=== PATIENT | female | born 1990 | race Caucasian/White ===

== ENCOUNTER 2017-03-14 14:34 | Inpatient (IN) | payer BC ==
[2017-03-14] MEDS ORDERED: PERMETHRIN 5% TOPICAL CREAM 60 GM TUBE TP ONE (15:25)
[2017-03-14 16:14] VITALS: BMI 25.6
--- NOTE | 2017-03-14 16:14 | HP ---
COWS - Scale Resting Pulse: 2= [place] 101-120 Sweatin=Flushed/Facial Moisture Restless Observation: 3= Extraneous Movement Pupil Size: 2= Moderately Dilated Bone or Joint Aches: 2= Severe Diffuse Aches Runny Nose/ Eye Tearin= Runny Nose/Eyes GI Upset > 30mins: 3= Vomiting/Diarrhea Tremor Observation: 2= Slight Tremor Visible Yawning Observation: 2= >3x During Session Anxiety or Irritability: 2=Irritable/Anxious Goose Flesh Skin: 0=Smooth Skin COWS Score: 22 Admission ROS S - HPI Chief Complaint: I NEED HELP TO STOP USING HEROIN,XANAX,CRYSTAL METH Allergies/Adverse Reactions: Allergies Allergy/AdvReac Type Severity Reaction Status Date / Time No Known Allergies Allergy Verified 03/14/17 15:19 History of Present Illness: THIS 26 YEARS OLD FEMALE WITH HEROIN,XANAX,CRYSTAL METH,DRINK TODAY,SEEKING DETOX,WITHDRAWAL SYMPTOM,LAST TREATMENT CATIE FROM 02/11/17 TO 02/16/17 ANXIETY,DEPRESSION,INSOMNIA NO SIGNIFICANT PERIOD OF SOBRIETY - Ebola screening Have you traveled outside of the country in the last 21 days: No Have you had contact with anyone from an Ebola affected area: No Do you have a fever: No - Review of Systems Constitutional: Chills, Diaphoresis, Loss of Appetite, Malaise, Night Sweats, Changes in sleep, Weakness EENT: reports: Tearing, Nose Congestion Respiratory: reports: No Symptoms reported Cardiac: reports: No Symptoms Reported GI: reports: Diarrhea, Nausea, Poor Fluid Intake, Vomiting Musculoskeletal: reports: Back Pain, Joint Pain, Muscle Pain Integumentary: reports: Dryness Neuro: reports: Headache, Tremors Endocrine: reports: No Symptoms Reported Hematology: reports: No Symptoms Reported Psychiatric: reports: Anxious, Depressed (INSOMNIA) Patient History - Patient Medical History Hx Anemia: Yes (NO MEDICATION) Hx Asthma: No Hx Chronic Obstructive Pulmonary Disease (COPD): No Hx Cancer: No Hx Cardiac Disorders: No Hx Congestive Heart Failure: No Hx Hypertension: No Hx Hypercholesterolemia: No Hx Pacemaker: No HX Cerebrovascular Accident: No Hx Seizures: No Hx Dementia: No Hx Diabetes: No Hx Gastrointestinal Disorders: No Hx Liver Disease: No Hx Genitourinary Disorders: No Hx Sexually Transmitted Disorders: No Hx Renal Disease (ESRD): No Hx Thyroid Disease: No Hx Human Immunodeficiency Virus (HIV): No (LAST 2016 NEGATIVE) Hx Hepatitis C: No Hx Depression: Yes (ANXIETY) Hx Suicide Attempt: No Hx Bipolar Disorder: No Hx Schizophrenia: No Other Medical History: NO SUICIDAL,NO HOMICIDAL - Patient Surgical History Hx Orthopedic Surgery: Yes (LEFT ANKLE IN 2013) Other Surgical History: FX OF MANDIBLE IN 2011 - PPD History Previous Implant?: Yes Documented Results: Negative w/o proof Implanted On Prior [facility] Admission?: No PPD to be Administered?: Yes - Reproductive History Patient is a Female of Child Bearing Age (11 -55 yrs old): Yes Last Menstrual Period: 02/26/17 Patient : No - Smoking Cessation Smoking history: Current every day smoker Have you smoked in the past 12 months: Yes Aproximately how many cigarettes per day: 20 Hx Chewing Tobacco Use: No Initiated information on smoking cessation: Yes 'Breaking Loose' booklet given: 03/14/17 - Substance & Tx. History Hx Alcohol Use: No Hx Substance Use: Yes Substance Use Type: Cocaine, Heroin, Tranquilizers Hx Substance Use Treatment: Yes (CATIE 02/11/17 TO 02/16/17) - Substances Abused Heroin Route: Injection Frequency: Daily Amount used: 20 BAGS Age of first use: 16 Date of Last Use: 03/14/17 Alprazolam (Xanax) Route: Oral Frequency: 3-6 times per week Amount used: 4MGS Age of first use: 16 Date of Last Use: 03/13/17 Cocaine Route: Injection Frequency: 1-3 times last 30 days Amount used: 100$ Age of first use: 15 Date of Last Use: 03/13/17 Alcohol Route: Oral Frequency: No use in 30 days Amount used: 4 GLASSES OF WINE Age of first use: 15 Date of Last Use: 03/13/17 Family Disease History - Family Disease History Family History: Denies Family Disease History: Other: Father (ALCOHOL) Admission Physical Exam [facility] - Vital Signs Vital Signs: Vital Signs Temperature 97.1 F L 03/14/17 16:12 Pulse Rate 107 H 03/14/17 16:12 Respiratory Rate 18 03/14/17 16:12 Blood Pressure 108/72 03/14/17 16:12 O2 Sat by Pulse Oximetry (%) - Physical General Appearance: Yes: Moderate Distress, Alcohol on Breath, Tremorous, Irritable, Sweating HEENTM: Yes: Normal ENT Inspection, ANAID, Pharynx Normal Respiratory: Yes: Lungs Clear, Normal Breath Sounds, No Respiratory Distress Neck: Yes: Within Normal Limits, Supple, Trachea in good position Breast: Yes: Within Normal Limits Cardiology: Yes: Within Normal Limits, Regular Rhythm, S1, S2 Abdominal: Yes: Normal Bowel Sounds, Non Tender, Soft, Organomegaly Genitourinary: Yes: Within Normal Limits Back: Yes: Muscle Spasm Musculoskeletal: Yes: full range of Motion, Back pain, Joint Stiffness, Muscle Pain Extremities: Yes: Tremors 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
[2017-03-14] MEDS ORDERED: P-EPHED 60MG/TRIPROLIDI 2.5MG TABLET PO PRN (16:32)
[2017-03-14] MEDS ORDERED: LOPERAMIDE HCL 2 MG CAPSULE PO PRN (16:32)
[2017-03-14] MEDS ORDERED: guaiFENesin/D-METHORPHAN HB 10 ML UNIT-DOSE CUPS PO PRN (16:32)
[2017-03-14] MEDS ORDERED: MAGNESIUM CITRATE 300 ML BOTTLE PO PRN (16:32)
[2017-03-14] MEDS ORDERED: METHADONE HCL 10 MG TABLET (FOR DETOX USE ONLY) PO ONE ×2 (16:32→23:00)
[2017-03-14] MEDS ORDERED: MAG HYDROX/AL HYDROX/SIMETH 30 ML UNIT-DOSE CUP PO PRN (16:32)
[2017-03-14] MEDS ORDERED: MENTHOL/PHENOL 1 EACH UD MM PRN (16:32)
[2017-03-14] MEDS ORDERED: MAGNESIUM HYDROX 2400MG/30ML ORAL SUSPENSION 30 ML CUP PO PRN (16:32)
--- NOTE | 2017-03-14 16:42 | HP ---
COWS - Scale Resting Pulse: 2= [place] 101-120 Sweatin=Flushed/Facial Moisture Restless Observation: 3= Extraneous Movement Pupil Size: 2= Moderately Dilated Bone or Joint Aches: 2= Severe Diffuse Aches Runny Nose/ Eye Tearin= Runny Nose/Eyes GI Upset > 30mins: 3= Vomiting/Diarrhea Tremor Observation: 2= Slight Tremor Visible Yawning Observation: 2= >3x During Session Anxiety or Irritability: 2=Irritable/Anxious Goose Flesh Skin: 0=Smooth Skin COWS Score: 22 Admission ROS S - HPI Chief Complaint: I NEED HELP TO STOP USING HEROIN ,XANAX,COCAINE Allergies/Adverse Reactions: Allergies Allergy/AdvReac Type Severity Reaction Status Date / Time No Known Allergies Allergy Verified 03/14/17 15:19 History of Present Illness: THIS 26 YEARS OLD FEMALE WITH HEROIN,COCAINE,XANAX DEPENDENCE,SEEKING DETOX,LAST DETOX CATIE FRO TO 02/16/17 FX OF MANDIBLE AND LEFT ANKLE NO SIGNIFICANT PERIOD OF SOBRIETY - Ebola screening Have you traveled outside of the country in the last 21 days: No Have you had contact with anyone from an Ebola affected area: No Have you been sick,other than usual withdrawal symptoms: No Do you have a fever: No - Review of Systems Constitutional: Chills, Loss of Appetite, Malaise, Night Sweats, Changes in sleep, Weakness EENT: reports: Tearing, Nose Congestion Respiratory: reports: No Symptoms reported, Shortness of Breath Cardiac: reports: No Symptoms Reported GI: reports: Diarrhea, Nausea, Vomiting, Abdominal cramping : reports: No Symptoms Reported Musculoskeletal: reports: Back Pain, Joint Pain, Muscle Pain, Joint Stiffness Integumentary: reports: Dryness Neuro: reports: Headache, Tremors Endocrine: reports: No Symptoms Reported Hematology: reports: Other (ANEMIA) Psychiatric: reports: Anxious, Depressed, other (INSOMNIA) Patient History - Patient Medical History Hx Anemia: Yes (NO MEDICATION) Hx Asthma: No Hx Chronic Obstructive Pulmonary Disease (COPD): No Hx Cancer: No Hx Cardiac Disorders: No Hx Congestive Heart Failure: No Hx Hypertension: No Hx Hypercholesterolemia: No Hx Pacemaker: No HX Cerebrovascular Accident: No Hx Seizures: No Hx Dementia: No Hx Diabetes: No Hx Gastrointestinal Disorders: No Hx Liver Disease: No Hx Genitourinary Disorders: No Hx Sexually Transmitted Disorders: No Hx Renal Disease (ESRD): No Hx Thyroid Disease: No Hx Human Immunodeficiency Virus (HIV): No (LAST 2017 NEGATIVE) Hx Hepatitis C: No Hx Depression: Yes (ANXIETY) Hx Suicide Attempt: No Hx Bipolar Disorder: No Hx Schizophrenia: No Other Medical History: NO SUICIDAL,NO HOMICIDAL - Patient Surgical History Hx Orthopedic Surgery: Yes (LEFT ANKLE IN 2013) Other Surgical History: FX OF MANDIBLE IN 2011 - PPD History Previous Implant?: Yes Documented Results: Negative w/o proof Implanted On Prior [facility] Admission?: No - Reproductive History Last Menstrual Period: 02/26/17 Patient : No - Smoking Cessation Smoking history: Current every day smoker Have you smoked in the past 12 months: Yes Aproximately how many cigarettes per day: 20 Hx Chewing Tobacco Use: No Initiated information on smoking cessation: Yes 'Breaking Loose' booklet given: 03/14/17 - Substances Abused Heroin Route: Injection Frequency: Daily Amount used: 20 BAGS Age of first use: 16 Date of Last Use: 03/14/17 Alprazolam (Xanax) Route: Oral Frequency: 3-6 times per week Amount used: 4MGS Age of first use: 16 Date of Last Use: 03/13/17 Cocaine Route: Injection Frequency: 1-3 times last 30 days Amount used: 100$ Age of first use: 15 Date of Last Use: 03/13/17 Alcohol Route: Oral Frequency: No use in 30 days Amount used: 4 GLASSES OF WINE Age of first use: 15 Date of Last Use: 03/13/17 Family Disease History - Family Disease History Family Disease History: Other: Father (ALCOHOL) Admission Physical Exam [facility] - Vital Signs Vital Signs: Vital Signs - 24 hr 03/14/17 16:12 Temperature 97.1 F L Pulse Rate 107 H Respiratory 18 Rate Blood Pressure 108/72 - Physical General Appearance: Yes: Tremorous, Irritable, Sweating, Anxious HEENTM: Yes: ANAID, Nasal Congestion Respiratory: Yes: Lungs Clear, Normal Breath Sounds, No Respiratory Distress Neck: Yes: Within Normal Limits, Supple, Trachea in good position Breast: Yes: Breast Exam Deferred Cardiology: Yes: Within Normal Limits, Regular Rhythm, Regular Rate, S1, S2 Abdominal: Yes: Within Normal Limits, Normal Bowel Sounds, Non Tender, Flat, Soft Genitourinary: Yes: Within Normal Limits Back: Yes: Within Normal Limits, Normal Inspection, Muscle Spasm Musculoskeletal: Yes: Back pain, Joint Stiffness, Muscle Pain Extremities: Yes: Within Normal Limits, Normal Range of Motion, Tremors 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, Fully Oriented, Alert, Motor Strength 5/5 Integumentary: Yes: Dry Lymphatic: Yes: Within Normal Limits - Diagnostic (1) Opioid dependence with withdrawal Current Visit: Yes Status: Acute (2) Uncomplicated sedative, hypnotic or anxiolytic withdrawal Current Visit: Yes Status: Acute (3) Insomnia secondary to depression with anxiety Current Visit: Yes Status: Acute (4) Nicotine dependence Current Visit: Yes Status: Acute (5) Exposure to potential infection Current Visit: Yes Status: Acute (6) Restless leg syndrome Current Visit: Yes Status: Acute (7) History of anemia Current Visit: Yes Status: Acute (8) Vitamin D deficiency Current Visit: Yes Status: Acute Cleared for Admission [facility] - Detox or Rehab [facility] Level of Care: Medically Managed Detox Regimen/Protocol: Methadone/Librium [facility] Breath Alcohol Content Breath Alcohol Content: 0 Urine Pregancy Test - Result Urine Test Results: Negative- NO Line Present Urine Drug Screen - Results Drug Screen Negative: No Urine Drug Screen Results: LARISA-Cocaine, OPI-Opiates, BZO-Benzodiazepines, OXY- Oxycodone
[2017-03-14] MEDS ORDERED: chlordiazePOXIDE HCL 25 MG CAPSULE PO ONE (17:15)
[2017-03-14] MEDS: NICOTINE POLACRILEX 2 MG GUM BC PRN (18:20)
[2017-03-14] MEDS: NICOTINE 21 MG/24 HOURS TOPICAL PATCH TD SCH (18:21)
[2017-03-14 22:08] LABS: URINE APPEARANCE TURBID; URINE BILIRUBIN NEGATIVE (NEGATIVE); URINE BLOOD NEGATIVE (NEGATIVE); URINE COLOR YELLOW; URINE GLUCOSE (UA) NEGATIVE (NEGATIVE); URINE KETONE NEGATIVE (NEGATIVE); URINE LEUK ESTERASE TRACE (NEGATIVE); URINE NITRITE NEGATIVE (NEGATIVE)
[2017-03-14 22:15] LABS: URINE PROTEIN 1+ (NEGATIVE)
[2017-03-14 22:16] LABS: EPI CELLS FEW /HPF (FEW); URINE MUCUS RARE
[2017-03-14] MEDS: CYCLOBENZAPRINE HCL 10 MG TABLET (FP) PO PRN (22:39)
[2017-03-14] MEDS: cloNIDine HCL 0.1 MG TABLET PO SCH (22:39)
[2017-03-14] MEDS: THIAMINE HCL 100 MG TABLET (FP) PO SCH (22:39)
[2017-03-14] MEDS: chlordiazePOXIDE HCL 25 MG CAPSULE PO SCH (22:39)
[2017-03-14] MEDS: IBUPROFEN 400 MG TABLET (FP) PO PRN (22:40)
[2017-03-14] MEDS: GABAPENTIN 300 MG CAPSULE (FP) PO SCH (22:40)
[2017-03-15] MEDS: chlordiazePOXIDE HCL 25 MG CAPSULE PO SCH ×4 (06:00→22:17)
[2017-03-15] MEDS: GABAPENTIN 300 MG CAPSULE (FP) PO SCH ×3 (06:00→22:17)
[2017-03-15] MEDS: IBUPROFEN 400 MG TABLET (FP) PO PRN ×2 (06:03→20:03)
[2017-03-15] MEDS: NICOTINE POLACRILEX 2 MG GUM BC PRN ×4 (06:04→19:54)
[2017-03-15] MEDS ORDERED: METHADONE HCL 10 MG TABLET (FOR DETOX USE ONLY) PO SCH (10:00)
[2017-03-15 10:07] LABS: ALBUMIN 3.2 g/dl (3.4-5.0); ANION GAP 9 (8-16); BLOOD UREA NITROGEN 14 mg/dL (7-18); CALCIUM 8.5 mg/dL (8.5-10.1); CHLORIDE 106 mmol/L (98-107); CO2 26 mmol/L (21-32); GLUCOSE,RANDOM 77 mg/dL (74-106); POTASSIUM 4.1 mmol/L (3.5-5.1); SODIUM 141 mmol/L (136-145)
[2017-03-15 10:10] LABS: ALK PHOS 69 U/L (45-117); BILIRUBIN,TOTAL 0.6 mg/dL (0.2-1.0); CREATININE 0.6 mg/dL (0.55-1.02); SGOT/AST 11 U/L (15-37); SGPT/ALT 12 U/L (12-78); TOT PROT 6.8 g/dl (6.4-8.2)
[2017-03-15 10:15] LABS: HEMATOCRIT 37.1 % (32.4-45.2); HEMOGLOBIN 12.1 GM/dL (10.7-15.3); MCHC 32.5 g/dl (32.0-36.0); MEAN PLT VOLUME 7.5 fl (7.5-11.1); PLATELET COUNT 384 K/MM3 (134-434); RBC 4.47 M/mm3 (3.60-5.2); RDW 15.2 % (11.6-15.6); WHITE BLOOD COUNT 7.4 K/mm3 (4.0-10.0)
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
[2017-03-15] MEDS: cloNIDine HCL 0.1 MG TABLET PO SCH ×2 (10:37→22:17)
[2017-03-15] MEDS: PRENATAL VITAMINS W/ FOLIC ACID TABLET (FP) PO SCH (10:37)
[2017-03-15] MEDS: NICOTINE 21 MG/24 HOURS TOPICAL PATCH TD SCH (10:37)
--- NOTE | 2017-03-15 10:56 | EKG ---
Test Reason : Blood Pressure : / mmHG Vent. Rate : 087 BPM Atrial Rate : 087 BPM P-R Int : 128 ms QRS Dur : 094 ms QT Int : 382 ms P-R-T Axes : 065 074 058 degrees QTc Int : 459 ms NORMAL SINUS RHYTHM NORMAL ECG NO PREVIOUS ECGS AVAILABLE Confirmed by MD Cesar, Acosta ([id number]) on 03/15/2017 10:55:41 AM Referred By: Confirmed By:Acosta Guerrero MD
--- NOTE | 2017-03-15 11:53 | PN ---
[facility] COWS - Scale Resting Pulse: 2= [place] 101-120 Sweatin=Flushed/Facial Moisture Restless Observation: 1= Difficult to Sit Still Pupil Size: 0= Normal to Room Light Bone or Joint Aches: 2= Severe Diffuse Aches Runny Nose/ Eye Tearin= Runny Nose/Eyes GI Upset > 30mins: 2= Nausea/Diarrhea Tremor Observation of Outstretched Hands: 2= Slight Tremor Visible Yawning Observation: 2= >3x During Session Anxiety or Irritability: 2=Irritable/Anxious Goose Flesh Skin: 3=Piloerection COWS Score: 20 [facility] Progress Note (SOAP) Subjective: nausea sweats shakes interrupted sleep agitation body aches anxiety chills Objective: 03/15/17 11:53 Vital Signs Temperature 98.2 F 03/15/17 10:38 Pulse Rate 116 H 03/15/17 10:38 Respiratory Rate 20 03/15/17 10:38 Blood Pressure 121/62 03/15/17 10:38 O2 Sat by Pulse Oximetry (%) Laboratory Tests 03/14/17 03/15/17 03/15/17 21:50 07:00 07:00 WBC 7.4 RBC 4.47 Hgb 12.1 Hct 37.1 MCV 83.0 MCH 27.0 MCHC 32.5 RDW 15.2 Plt Count 384 MPV 7.5 Sodium 141 Potassium 4.1 Chloride 106 Carbon Dioxide 26 Anion Gap 9 BUN 14 Creatinine 0.6 Creat Clearance w eGFR > 60 Random Glucose 77 Calcium 8.5 Total Bilirubin 0.6 AST 11 L ALT 12 Alkaline Phosphatase 69 Total Protein 6.8 Albumin 3.2 L Urine Color Yellow Urine Appearance Turbid Urine pH 5.0 Ur Specific [place] 1.029 Urine Protein 1+ H Urine Glucose (UA) Negative Urine Ketones Negative Urine Blood Negative Urine Nitrite Negative Urine Bilirubin Negative Urine Urobilinogen 2.0 H Ur Leukocyte Esterase Trace Urine WBC (Auto) 118 Urine RBC (Auto) None Ur Epithelial Cells Few Urine Mucus Rare aaox3 ambulating no acute distress Assessment: 03/15/17 11:55 withdrawal sx Plan: continue detox increase fluids zofran sl prn
[2017-03-15] MEDS ORDERED: ONDANSETRON *ODT* 4 MG TABLET SL PRN (11:56)
[2017-03-15] MEDS: chlordiazePOXIDE HCL 25 MG CAPSULE PO PRN (13:54)
[2017-03-15] MEDS: CYCLOBENZAPRINE HCL 10 MG TABLET (FP) PO PRN ×2 (13:54→22:17)
[2017-03-15] MEDS: ACETAMINOPHEN 325 MG TABLET (FP) PO PRN (14:10)
[2017-03-15] MEDS: THIAMINE HCL 100 MG TABLET (FP) PO SCH (22:17)
[2017-03-16] MEDS: chlordiazePOXIDE HCL 25 MG CAPSULE PO PRN ×2 (01:07→13:36)
[2017-03-16] MEDS: GABAPENTIN 300 MG CAPSULE (FP) PO SCH ×3 (06:12→22:16)
[2017-03-16] MEDS: chlordiazePOXIDE HCL 25 MG CAPSULE PO SCH ×3 (06:12→17:48)
[2017-03-16] MEDS: CYCLOBENZAPRINE HCL 10 MG TABLET (FP) PO PRN ×3 (06:14→19:00)
[2017-03-16] MEDS: METHADONE HCL 5 MG TABLET (FOR DETOX USE ONLY) PO SCH (10:38)
[2017-03-16] MEDS: PRENATAL VITAMINS W/ FOLIC ACID TABLET (FP) PO SCH (10:38)
[2017-03-16] MEDS: cloNIDine HCL 0.1 MG TABLET PO SCH ×2 (10:39→22:15)
[2017-03-16] MEDS: NICOTINE 21 MG/24 HOURS TOPICAL PATCH TD SCH (10:39)
[2017-03-16] MEDS: NICOTINE POLACRILEX 2 MG GUM BC PRN ×2 (14:16→22:21)
--- NOTE | 2017-03-16 14:32 | PN ---
[facility] COWS - Scale Resting Pulse: 0= [place] 80 or Below Sweatin= Chills/Flushing Restless Observation: 3= Extraneous Movement Pupil Size: 0= Normal to Room Light Bone or Joint Aches: 2= Severe Diffuse Aches Runny Nose/ Eye Tearin= None GI Upset > 30mins: 2= Nausea/Diarrhea Tremor Observation of Outstretched Hands: 2= Slight Tremor Visible Yawning Observation: 1= 1-2x During Session Anxiety or Irritability: 4=Extreme Anxiety Goose Flesh Skin: 0=Smooth Skin COWS Score: 15 [facility] Progress Note (SOAP) Subjective: Irritability, anxious, pacing,body aches, sweats, chills, interrupted sleep Objective: 03/16/17 14:30 Last Vital Signs Temp Pulse Resp BP Pulse Ox 98.2 F 96 H 18 112/64 03/16/17 10:00 03/16/17 10:00 03/16/17 10:00 03/16/17 10:00 Laboratory Last Values WBC 7.4 K/mm3 (4.0-10.0) 03/15/17 07:00 RBC 4.47 M/mm3 (3.60-5.2) 03/15/17 07:00 Hgb 12.1 GM/dL (10.7-15.3) 03/15/17 07:00 Hct 37.1 % (32.4-45.2) 03/15/17 07:00 MCV 83.0 fl (80-96) 03/15/17 07:00 MCH 27.0 pg (25.7-33.7) 03/15/17 07:00 MCHC 32.5 g/dl (32.0-36.0) 03/15/17 07:00 RDW 15.2 % (11.6-15.6) 03/15/17 07:00 Plt Count 384 K/MM3 (134-434) 03/15/17 07:00 MPV 7.5 fl (7.5-11.1) 03/15/17 07:00 Sodium 141 mmol/L (136-145) 03/15/17 07:00 Potassium 4.1 mmol/L (3.5-5.1) 03/15/17 07:00 Chloride 106 mmol/L (98-107) 03/15/17 07:00 Carbon Dioxide 26 mmol/L (21-32) 03/15/17 07:00 Anion Gap 9 (8-16) 03/15/17 07:00 BUN 14 mg/dL (7-18) 03/15/17 07:00 Creatinine 0.6 mg/dL (0.55-1.02) 03/15/17 07:00 Creat Clearance w eGFR > 60 (>60) 03/15/17 07:00 Random Glucose 77 mg/dL (74-106) 03/15/17 07:00 Calcium 8.5 mg/dL (8.5-10.1) 03/15/17 07:00 Total Bilirubin 0.6 mg/dL (0.2-1.0) 03/15/17 07:00 AST 11 U/L (15-37) L 03/15/17 07:00 ALT 12 U/L (12-78) 03/15/17 07:00 Alkaline Phosphatase 69 U/L (45-117) 03/15/17 07:00 Total Protein 6.8 g/dl (6.4-8.2) 03/15/17 07:00 Albumin 3.2 g/dl (3.4-5.0) L 03/15/17 07:00 Urine Color Yellow 03/14/17 21:50 Urine Appearance Turbid 03/14/17 21:50 Urine pH 5.0 (5.0-8.0) 03/14/17 21:50 Ur Specific [place] 1.029 (1.001-1.035) 03/14/17 21:50 Urine Protein 1+ (NEGATIVE) H 03/14/17 21:50 Urine Glucose (UA) Negative (NEGATIVE) 03/14/17 21:50 Urine Ketones Negative (NEGATIVE) 03/14/17 21:50 Urine Blood Negative (NEGATIVE) 03/14/17 21:50 Urine Nitrite Negative (NEGATIVE) 03/14/17 21:50 Urine Bilirubin Negative (NEGATIVE) 03/14/17 21:50 Urine Urobilinogen 2.0 mg/dL (0.2-1.0) H 03/14/17 21:50 Ur Leukocyte Esterase Trace (NEGATIVE) 03/14/17 21:50 Urine WBC (Auto) 118 /hpf (3-5) 03/14/17 21:50 Urine RBC (Auto) None /hpf (0-3) 03/14/17 21:50 Ur Epithelial Cells Few /HPF (FEW) 03/14/17 21:50 Urine Mucus Rare 03/14/17 21:50 RPR Titer Nonreactive (NONREACTIVE) 03/15/17 07:00 Labs noted Assessment: 03/16/17 14:31 AOx3 ambulating No signs or symptoms of distress withdrawal symptoms Plan: Increase fluids Continue detox
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
[2017-03-16] MEDS: IBUPROFEN 400 MG TABLET (FP) PO PRN (19:00)
[2017-03-16] MEDS: THIAMINE HCL 100 MG TABLET (FP) PO SCH (22:16)
[2017-03-16] MEDS: chlordiazePOXIDE 5 MG CAPSULE PO SCH (22:16)
[2017-03-16] MEDS: ACETAMINOPHEN 325 MG TABLET (FP) PO PRN (22:17)
[2017-03-17] MEDS: chlordiazePOXIDE HCL 25 MG CAPSULE PO PRN ×2 (00:47→14:38)
[2017-03-17] MEDS ORDERED: hydrOXYzine PAMOATE 50 MG CAPSULE (FP) PO ONE (01:22)
[2017-03-17] MEDS: NICOTINE POLACRILEX 2 MG GUM BC PRN ×2 (01:42→11:04)
[2017-03-17] MEDS: CYCLOBENZAPRINE HCL 10 MG TABLET (FP) PO PRN ×2 (03:15→11:04)
[2017-03-17] MEDS: chlordiazePOXIDE 5 MG CAPSULE PO SCH ×4 (06:00→18:47)
[2017-03-17] MEDS: GABAPENTIN 300 MG CAPSULE (FP) PO SCH ×2 (06:02→14:35)
[2017-03-17] MEDS ORDERED: COLLOIDAL OATMEAL 1 EACH PACKET TP PRN (07:00)
[2017-03-17] MEDS ORDERED: hydrOXYzine PAMOATE 50 MG CAPSULE (FP) PO PRN ×2 (09:42→10:35)
--- NOTE | 2017-03-17 09:44 | PN ---
Psychiatric Progress Note Vital Signs: Vital Signs Period Temp Pulse Resp BP Sys/Cuevas Pulse Ox Last 24 Hr 97.2 F-98.8 F 67-105 18-18 104-121/62-68 Date of Session: 03/17/17 Chief Complaint:: " I need something to calm my anxiety throughout the day." HPI: Pt. admitted to for alcohol, benzodiazepine, cocaine, and heroin dependence. ROS: Unremarkable. Current Medications: Active Medications Generic Name Dose Route Start Last Admin Trade Name Freq PRN Reason Stop Dose Admin Acetaminophen 650 mg 03/14/17 16:32 03/16/17 22:17 Tylenol - PO 650 mg Q4H PRN Administration FEVER Al Hydroxide/Mg Hydroxide 30 ml 03/14/17 16:32 Mylanta Oral Suspension - PO Q6H PRN DYSPEPSIA Buspirone HCl 15 mg 03/15/17 10:00 03/16/17 22:15 Buspar - PO 15 mg BID TRAVIS Administration Chlordiazepoxide HCl 15 mg 03/16/17 23:00 03/17/17 06:00 Librium - PO 03/17/17 17:01 15 mg [id number] TRAVIS Administration Chlordiazepoxide HCl 10 mg 03/17/17 23:00 Librium - PO 03/18/17 17:01 [id number] TRAVIS Chlordiazepoxide HCl 25 mg 03/14/17 16:32 03/17/17 00:47 Librium - PO 03/17/17 16:32 25 mg Q4H PRN Administration WITHDRAWAL(CONT SUBST) Clonidine 0.1 mg 03/14/17 22:00 03/16/17 22:15 Catapres - PO 0.1 mg BID TRAVIS Administration Colloidal Oatmeal 1 each 03/17/17 07:00 Aveeno Bath - TP DAILY PRN Cyclobenzaprine HCl 10 mg 03/14/17 16:58 03/17/17 03:15 Flexeril - PO 10 mg TID PRN Administration MUSCLE SPASMS Eucalyptus/Menthol/Phenol/Sorbitol 1 each 03/14/17 16:32 Cepastat Lozenge - MM Q4H PRN SORE THROAT Gabapentin 300 mg 03/14/17 22:00 03/17/17 06:02 Neurontin - PO 300 mg TID TRAVIS Administration Guaifenesin 10 ml 03/14/17 16:32 Robitussin Dm - PO Q6H PRN COUGH Hydroxyzine Pamoate 50 mg 03/17/17 09:42 Vistaril - PO Q6H PRN FOR ITCHING Ibuprofen 400 mg 03/14/17 16:32 03/16/17 19:00 Motrin - PO 400 mg Q6H PRN Administration PAIN LEVEL 4-6 Loperamide HCl 4 mg 03/14/17 16:32 Imodium - PO Q6H PRN DIARRHEA Magnesium Citrate 300 ml 03/14/17 16:32 Citroma - PO Q48H PRN CONSTIPATION Magnesium Hydroxide 30 ml 03/14/17 16:32 Milk Of Magnesia - PO DAILY PRN CONSTIPATION Methadone HCl 15 mg 03/16/17 10:00 03/16/17 10:38 Dolophine - PO 03/17/17 10:01 15 mg DAILY TRAVIS Administration Methadone HCl 5 mg 03/19/17 06:00 Dolophine - PO 03/19/17 06:01 DAILY@0600 TRAVIS Methadone HCl 10 mg 03/18/17 10:00 Dolophine - PO 03/18/17 10:01 DAILY TRAVIS Nicotine 21 mg 03/14/17 16:45 03/16/17 10:39 Nicoderm Patch - TD 21 mg DAILY TRAVIS Administration Nicotine Polacrilex 2 mg 03/14/17 16:32 03/17/17 01:42 Nicorette Gum - BC 2 mg Q2H PRN Administration NICOTINE REPLACEMENT RX Ondansetron HCl 4 mg 03/15/17 11:56 Zofran Odt - SL Q6H PRN NAUSEA AND/OR VOMITING Multivit/Folic Acid/Iron 1 tab 03/15/17 10:00 03/16/17 10:38 Vitamins (Sjr) - PO 1 tab DAILY TRAVIS Administration Pseudoephedrine/Triprolidine 1 combo 03/14/17 16:32 Actifed - PO TID PRN NASAL CONGESTION Thiamine HCl 100 mg 03/14/17 22:00 03/16/17 22:16 Vitamin B1 - PO 100 mg HS TRAVIS Administration Medication(s) Change(s): Yes. Vistaril 50mg q6 hr ordered for anxiety. Current Side Effect: No Lab tests ordered: No Lab tests reviewed: Yes Provider note:: Spudder approached patient concerning psychiatric reconsultation. Pt. wanting to speak about the situation that occured yesterday. Stating she had an outburst after her needs were not met by staff. Pt. was observed throwing food and linen around her room, yelling and cursing at staff, and was difficult to redirect. Security had to be called to help deescalate the situation. Pt. educated by commercial real estate underwriter on the importance of developing coping mechanisms to assist her when her anxiety and agititation builds up. Pt. currently has an order of buspar 15 BID which patient states is effective but is requesting a medication to help her anxiety throughout the day. Spudder to order vistaril 50mg q6hr to help manage patient's anxiety and agitation. Pt. educated on the benefits and side effects of vistaril. Pt. satisifed and receptive to feedback. Will continue to monitor patient. Total face to face time:: 25 Mental Status Exam - Mental Status Exam Alert and Oriented to: Time, Place, Person Cognitive Function: Good Patient Appearance: Well Groomed Mood: Hopeful Affect: Appropriate Patient Behavior: Appropriate, Cooperative Speech Pattern: Clear, Appropriate Voice Loudness: Normal Thought Process: Goal Oriented Thought Disorder: Not Present Hallucinations: Denies Suicidal Ideation: Denies Homicidal Ideation: Denies Insight/Judgement: Poor Sleep: Fair Appetite: Fair Muscle strength/Tone: Normal Gait/Station: Normal Psychiatric Treatment Plan - Problem List (1) Alcohol dependence Current Visit: Yes Qualifiers: Substance use status: uncomplicated Qualified Code(s): F10.20 - Alcohol dependence, uncomplicated (2) Nicotine dependence Current Visit: Yes Qualifiers: Nicotine product type: cigarettes Substance use status: uncomplicated Qualified Code(s): F17.210 - Nicotine dependence, cigarettes, uncomplicated (3) Opioid dependence with withdrawal Current Visit: Yes (4) Uncomplicated sedative, hypnotic or anxiolytic withdrawal Current Visit: Yes (5) XAVIER (generalized anxiety disorder) Current Visit: Yes Comment: Self reports.
[2017-03-17] MEDS ORDERED: HYDROCORTISONE 1% TOPICAL CREAM 30 GM TUBE TP PRN (10:53)
[2017-03-17] MEDS: cloNIDine HCL 0.1 MG TABLET PO SCH (10:54)
[2017-03-17] MEDS: METHADONE HCL 5 MG TABLET (FOR DETOX USE ONLY) PO SCH (10:54)
[2017-03-17] MEDS: PRENATAL VITAMINS W/ FOLIC ACID TABLET (FP) PO SCH (10:54)
[2017-03-17] MEDS: NICOTINE 21 MG/24 HOURS TOPICAL PATCH TD SCH (10:55)
--- NOTE | 2017-03-17 13:14 | PN ---
S Progress Note (SOAP) Subjective: Interrupted sleep, anxious, , chills, body aches Objective: 03/17/17 13:13 Last Vital Signs Temp Pulse Resp BP Pulse Ox 98.8 F 95 H 18 104/68 03/17/17 09:30 03/17/17 09:30 03/17/17 09:30 03/17/17 09:30 Laboratory Last Values WBC 7.4 K/mm3 (4.0-10.0) 03/15/17 07:00 RBC 4.47 M/mm3 (3.60-5.2) 03/15/17 07:00 Hgb 12.1 GM/dL (10.7-15.3) 03/15/17 07:00 Hct 37.1 % (32.4-45.2) 03/15/17 07:00 MCV 83.0 fl (80-96) 03/15/17 07:00 MCH 27.0 pg (25.7-33.7) 03/15/17 07:00 MCHC 32.5 g/dl (32.0-36.0) 03/15/17 07:00 RDW 15.2 % (11.6-15.6) 03/15/17 07:00 Plt Count 384 K/MM3 (134-434) 03/15/17 07:00 MPV 7.5 fl (7.5-11.1) 03/15/17 07:00 Sodium 141 mmol/L (136-145) 03/15/17 07:00 Potassium 4.1 mmol/L (3.5-5.1) 03/15/17 07:00 Chloride 106 mmol/L (98-107) 03/15/17 07:00 Carbon Dioxide 26 mmol/L (21-32) 03/15/17 07:00 Anion Gap 9 (8-16) 03/15/17 07:00 BUN 14 mg/dL (7-18) 03/15/17 07:00 Creatinine 0.6 mg/dL (0.55-1.02) 03/15/17 07:00 Creat Clearance w eGFR > 60 (>60) 03/15/17 07:00 Random Glucose 77 mg/dL (74-106) 03/15/17 07:00 Calcium 8.5 mg/dL (8.5-10.1) 03/15/17 07:00 Total Bilirubin 0.6 mg/dL (0.2-1.0) 03/15/17 07:00 AST 11 U/L (15-37) L 03/15/17 07:00 ALT 12 U/L (12-78) 03/15/17 07:00 Alkaline Phosphatase 69 U/L (45-117) 03/15/17 07:00 Total Protein 6.8 g/dl (6.4-8.2) 03/15/17 07:00 Albumin 3.2 g/dl (3.4-5.0) L 03/15/17 07:00 Urine Color Yellow 03/14/17 21:50 Urine Appearance Turbid 03/14/17 21:50 Urine pH 5.0 (5.0-8.0) 03/14/17 21:50 Ur Specific [place] 1.029 (1.001-1.035) 03/14/17 21:50 Urine Protein 1+ (NEGATIVE) H 03/14/17 21:50 Urine Glucose (UA) Negative (NEGATIVE) 03/14/17 21:50 Urine Ketones Negative (NEGATIVE) 03/14/17 21:50 Urine Blood Negative (NEGATIVE) 03/14/17 21:50 Urine Nitrite Negative (NEGATIVE) 03/14/17 21:50 Urine Bilirubin Negative (NEGATIVE) 03/14/17 21:50 Urine Urobilinogen 2.0 mg/dL (0.2-1.0) H 03/14/17 21:50 Ur Leukocyte Esterase Trace (NEGATIVE) 03/14/17 21:50 Urine WBC (Auto) 118 /hpf (3-5) 03/14/17 21:50 Urine RBC (Auto) None /hpf (0-3) 03/14/17 21:50 Ur Epithelial Cells Few /HPF (FEW) 03/14/17 21:50 Urine Mucus Rare 03/14/17 21:50 RPR Titer Nonreactive (NONREACTIVE) 03/15/17 07:00 Assessment: 03/17/17 13:14 withdrawal symptoms Plan: Continue detox
[2017-03-17 17:43] VITALS: BP 101/62; PULSE 78; TEMP 98.2
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
[2017-03-17] MEDS ORDERED: chlordiazePOXIDE HCL 10 MG CAPSULE PO SCH (23:00)
[2017-03-18] MEDS ORDERED: METHADONE HCL 10 MG TABLET (FOR DETOX USE ONLY) PO SCH (10:00)
[2017-03-19] MEDS ORDERED: METHADONE HCL 5 MG TABLET (FOR DETOX USE ONLY) PO SCH (06:00)
== END 2017-03-17 19:15 | disposition home or self-care (01) | DRG 773 ==
LOC: YASAS 14:34 → Y6N 17:03
PROVIDERS: ADMIT Internal Medicine; ATTEND Internal Medicine
PROC: HZ2ZZZZ Detoxification Services for Substance Abuse Treatment (ICD-10-PCS; principal; 2017-03-14)
DX: F11.23 Opioid dependence with withdrawal (principal); F13.230 Sedative, hypnotic or anxiolytic dependence with withdrawal, uncomplicated; F10.20 Alcohol dependence, uncomplicated; F14.20 Cocaine dependence, uncomplicated; F17.213 Nicotine dependence, cigarettes, with withdrawal; F41.1 Generalized anxiety disorder; F51.05 Insomnia due to other mental disorder; G25.81 Restless legs syndrome; E55.9 Vitamin D deficiency, unspecified; Z86.2 Personal history of diseases of the blood and blood-forming organs and certain disorders involving the immune mechanism; Z20.9 Contact with and (suspected) exposure to unspecified communicable disease
CPT/HCPCS: 36415; 80053; 81003; 81015; 85027; 86593; 93005; 93010